=== PATIENT | female | born 1990 | race Caucasian/White ===

== ENCOUNTER → 2016-11-28 | Outpatient (CLI) | payer OTHER ==
[~2016-11-28] MED LIST: PRENTAB26 PO
[2016-11-28 11:58] LABS: URINE APPEARANCE CLEAR (CLEAR); URINE BILIRUBIN NEG (NEG); URINE COLOR YELLOW; URINE EPITHELIAL CELL AUTO >30 /lpf (0-5); URINE NITRITE NEG (NEG); URINE PH 7.5 (4.5-7.5); URINE SPECIFIC GRAVITY 1.012 (1.000-1.030); UROBILINOGEN NEG (NEG)
[2016-11-28 12:00] LABS: MANUAL MICROSCOPIC REQUIRED? NO; REVIEW REQ? NO
== END | disposition home or self-care (01) ==
LOC: C.LABSPEC 11:31
PROVIDERS: ATTEND Obstetrics & Gynecology
DX: Z34.00 Encounter for supervision of normal first pregnancy, unspecified trimester (principal)

== ENCOUNTER → 2016-12-06 | Outpatient (CLI) | payer OTHER | END | disposition home or self-care (01) | LOC: C.PAPS 15:07 | PROVIDERS: ATTEND Obstetrics & Gynecology | DX: Z34.00 Encounter for supervision of normal first pregnancy, unspecified trimester (principal) ==

== ENCOUNTER → 2016-12-06 | Outpatient (CLI) | payer OTHER ==
[2016-12-06 11:43] LABS: HEMATOCRIT 39.6 % (37-47); MEAN CELL VOLUME 90.4 fL (80-100); MEAN CORPUSCULAR HEMOGLOBIN 31.5 pg (25-34); MEAN CORPUSCULAR HGB CONC 34.8 g/dl (32-36); MEAN PLATELET VOLUME 11.2 fL (7.4-10.4); PLATELET COUNT 262 K/uL (130-400); RED BLOOD COUNT 4.38 M/uL (4.2-5.4); WHITE BLOOD COUNT 9.07 K/uL (4.8-10.8)
[2016-12-06 11:52] LABS: COMPLETE YES
== END | disposition home or self-care (01) ==
LOC: C.LAB1850 09:50
PROVIDERS: ATTEND Obstetrics & Gynecology
DX: Z34.00 Encounter for supervision of normal first pregnancy, unspecified trimester (principal)

== ENCOUNTER → 2016-12-06 | Outpatient (CLI) | payer OTHER ==
[2016-12-11 00:15] LABS: CHLAMYDIA TRACH RNA*** NOT DETECTED (NOT DETECTED); GC (NEIS GONORRHOEAE)RNA** NOT DETECTED (NOT DETECTED)
== END | disposition home or self-care (01) ==
LOC: C.LABSPEC 13:17
PROVIDERS: ATTEND Obstetrics & Gynecology
DX: Z34.00 Encounter for supervision of normal first pregnancy, unspecified trimester (principal)

== ENCOUNTER → 2017-01-16 | Outpatient (CLI) | payer OTHER ==
[2017-01-16 18:05] LABS: GTGD 50 Grams
== END | disposition home or self-care (01) ==
LOC: C.LAB1850 15:41
PROVIDERS: ATTEND Obstetrics & Gynecology
DX: Z34.00 Encounter for supervision of normal first pregnancy, unspecified trimester (principal)

== ENCOUNTER 2017-02-17 03:48 | Emergency (ER) | payer OTHER ==
[~2017-02-17] VITALS: Ht 170.2 cm; Wt 95.9 kg
[2017-02-17 03:55] VITALS: TEMP 36.4; Ht 170.2 cm; Wt 95.9 kg
[2017-02-17] MEDS ORDERED: PRENTAB26 PO (04:13)
[2017-02-17] MEDS ORDERED: SODIUM CHLORIDE 0.9% 1000ML 1,000 ML IV STA (04:21)
[2017-02-17] MEDS ORDERED: MoRPHine SULFATE 4 MG/ML 1 ML CARP\\VIAL IV STA (04:24)
[2017-02-17] MEDS ORDERED: ONDANSETRON INJ 2 MG/ML 2 ML VIAL IV STA (04:24)
--- NOTE | 2017-02-17 04:29 | EMERGENCY ROOM VISIT NOTE ---
History Report prepared by Bal: Jolynn Simmons Under the Supervision of: Dr. Noemi Posadas D.O. First contact with patient: 04:04 Chief Complaint: ABDOMINAL PAIN Stated Complaint: ABD PAIN,20 WEEKS PREG, Nursing Triage Summary: Pt reporting mid to right upper quadrant abdominal pain that awoke her from sleep at 0100. Pain rated 7/10. 3 episodes of vomiting. 20 weeks . History of Present Illness The patient is a 26 year old female who presents to the Emergency Room with complaints of persistent upper abdominal pain that began around 0100 this morning. She currently rates her discomfort as a 7/10 in severity. The patient states that the pain woke her up this morning, noting that she felt fine prior to going to bed last evening. She states she has never had pain like this in the past. The patient states that she is currently 20 weeks . She states that her pain wraps around to her back. The patient additionally notes 3 episodes of vomiting, but denies any nausea. She states that she has been lightheaded with movement. The patient denies any vaginal bleeding or discharge, urinary symptoms, or difficulty moving her bowels. She denies having any contractions. The patient states that she has a history of syncope with due to hypotension in the past. She denies any active medical problems. The patient denies any previous abdominal surgeries. Source of History: patient Onset: 0100 this morning Position: abdomen (upper) Symptom Intensity: 7/10 Timing: other (persistent) Associated Symptoms: + vomiting, No nausea, No urinary symptoms Note: Associated Symptoms: lightheaded with movement, pain wrapping around to her back Review of Systems See HPI for pertinent positives & negatives. A total of 10 systems reviewed and were otherwise negative. Past Medical & Surgical Medical Problems: (1) Syncope Family History No pertinent family history stated. Social History Smoking Status: Never Smoker Marital Status: Housing Status: lives with significant other Occupation Status: employed Current/Historical Medications Scheduled Multivit/Min/Iron/Fol Ac/Pren ( Vitamin), 1 TAB PO DAILY Allergies Coded Allergies: No Known Allergies (Unverified , 02/17/17) Physical Exam Vital Signs Date Time Temp Pulse Resp B/P Pulse Ox O2 Delivery O2 Flow Rate FiO2 02/17/17 06:28 71 16 105/59 100 Room Air 02/17/17 06:00 63 16 98/56 100 Room Air 02/17/17 05:31 57 02/17/17 05:28 58 18 100/53 99 Room Air 02/17/17 04:22 105/52 02/17/17 03:55 36.4 57 18 84/54 99 Room Air Physical Exam HEENT: Head - normocephalic and atraumatic Pupils are equal, round, and reactive to light. Extraocular eye muscles are intact, and sclera are anicteric. Nose - moist nasal mucosa without discharge. Mouth - moist buccal mucosa. Oropharynx is nonerythematous and there is no tonsillar exudate or edema noted. Neck: Supple; no JVD, nuchal rigidity, cervical lymphadenopathy. Heart: Regular rate and rhythm. There is a normal S1 and S2 with no murmurs, clicks, or gallops appreciated. Lungs: Clear to auscultation bilaterally with no wheezes, rales, or rhonchi. Abdomen: Gravid, diffusely tender in epigastrium and upper quadrants of the abdomen. Soft, nondistended, with good bowel sounds. There are no palpable pulsatile masses or hepatosplenomegaly. There is no guarding, rigidity, or rebound noted. Extremities: No evidence of cyanosis, clubbing, or edema. There are easily palpable peripheral pulses. Skin: Pale, warm and dry with good turgor and no rashes. Medical Decision & Procedures ER Provider Diagnostic Interpretation: US results as stated below per my review and radiologist interpretation: US RUQ: Distended GB with multiple small mobile gallstones. No evidence of GB wall thickening or pericholecystic fluid. No biliary dilation. Liver measures 18.1 cm long. Right kidney and visualized pancreas are unremarkable. No free fluid. Radiologist: Wei Florence MD Study ready at 0530 and initial results transmitted at 0557. US OB limited: Single live intrauterine gestation with approximate gestational age of 20 weeks and 6 days by measurements. heart rate 160 and beats per minute Breech presentation. Fundal placenta. Amniotic fluid is within normal limits. Radiologist: Wei Florence MD Study ready at 0530 and initial results transmitted at 0514. Laboratory Results 02/17/17 04:55 Red Blood Count 3.79, Mean Corpuscular Volume 91.0, Mean Corpuscular Hemoglobin 30.3, Mean Corpuscular Hemoglobin Concent 33.3, Mean Platelet Volume 10.8, Neutrophils (%) (Auto) 87.5, Lymphocytes (%) (Auto) 8.4, Monocytes (%) (Auto) 3.7, Eosinophils (%) (Auto) 0.1, Basophils (%) (Auto) 0.0, Neutrophils # (Auto) 12.88, Lymphocytes # (Auto) 1.24, Monocytes # (Auto) 0.55, Eosinophils # (Auto) 0.01, Basophils # (Auto) 0.00 02/17/17 04:55 Test 02/17/17 04:55 White Blood Count 14.72 K/uL (4.8-10.8) Red Blood Count 3.79 M/uL (4.2-5.4) Hemoglobin 11.5 g/dL (12.0-16.0) Hematocrit 34.5 % (37-47) Mean Corpuscular Volume 91.0 fL (80-100) Mean Corpuscular Hemoglobin 30.3 pg (25-34) Mean Corpuscular Hemoglobin Concent 33.3 g/dl (32-36) Platelet Count 205 K/uL (130-400) Mean Platelet Volume 10.8 fL (7.4-10.4) Neutrophils (%) (Auto) 87.5 % Lymphocytes (%) (Auto) 8.4 % Monocytes (%) (Auto) 3.7 % Eosinophils (%) (Auto) 0.1 % Basophils (%) (Auto) 0.0 % Neutrophils # (Auto) 12.88 K/uL (1.4-6.5) Lymphocytes # (Auto) 1.24 K/uL (1.2-3.4) Monocytes # (Auto) 0.55 K/uL (0.11-0.59) Eosinophils # (Auto) 0.01 K/uL (0-0.5) Basophils # (Auto) 0.00 K/uL (0-0.2) RDW Standard Deviation 44.2 fL (36.4-46.3) RDW Coefficient of Variation 13.3 % (11.5-14.5) Immature Granulocyte % (Auto) 0.3 % Immature Granulocyte # (Auto) 0.04 K/uL (0.00-0.02) Anion Gap 9.0 mmol/L (3-11) Est Creatinine Clear Calc Drug Dose 157.0 ml/min Estimated GFR () 141.7 Estimated GFR (Non- 122.3 BUN/Creatinine Ratio 12.6 (10-20) Calcium Level 8.2 mg/dl (8.5-10.1) Total Bilirubin 0.2 mg/dl (0.2-1) Direct Bilirubin < 0.1 mg/dl (0-0.2) Aspartate Amino Transf (AST/SGOT) 12 U/L (15-37) Alanine Aminotransferase (ALT/SGPT) 27 U/L (12-78) Alkaline Phosphatase 98 U/L (45-117) Total Protein 6.2 gm/dl (6.4-8.2) Albumin 2.6 gm/dl (3.4-5.0) Lipase 97 U/L (73-393) Laboratory results per my review. Medications Administered Medications (Trade) Dose Ordered Sig/Deloris Route Start Time Stop Time Status Last Admin Dose Admin Sodium Chloride (Nss 1000ml) 1,000 ml @ 999 mls/hr Q1H1M STAT IV 02/17/17 04:21 02/17/17 05:21 DC 02/17/17 04:48 999 MLS/HR Morphine Sulfate (MoRPHine SULFATE INJ) 4 mg NOW STAT IV 02/17/17 04:24 02/17/17 04:25 DC 02/17/17 04:41 4 MG Ondansetron HCl (Zofran Inj) 4 mg NOW STAT IV 02/17/17 04:24 02/17/17 04:25 DC 02/17/17 04:40 4 MG Procedure The patient was treated with Chloride 1000 ml @ 999 mls/hr IV, Zofran Inj 4 mg IV, Morphine Sulfate 4 mg IV. ED Course 0418: Past medical records reviewed. The patient was evaluated in room A2. A complete history and physical exam was performed. An IV lock was initiated and labs were drawn as above. 0421: Ordered Sodium Chloride 1000 ml @ 999 mls/hr IV. 0424: Ordered Zofran Inj 4 mg IV, Morphine Sulfate 4 mg IV. The patient went for an ultrasound of the epigastrium as well as the baby. 0601: I reevaluated the patient and she is feeling much better. I discussed the exam findings with her and i discussed the treatment plan. She verbalized complete understanding and agreement. She is ready to go home. Medical Decision The patient is a 26 year old female who presents to the ED with abdominal pain. Differential diagnosis includes cholecystitis, HELLP syndrome, pancreatitis, gastritis, placental abruption, small bowel obstruction. Lab interpretation: normal lipase, normal LFTs, glucose 129, normal renal function, hemoglobin 11.5, white blood cell count 14.7. This is a 26-year-old female patient in her second trimester who awoke tonight with severe epigastric abdominal pain. Laboratory studies were fairly unremarkable. Ultrasound of the right upper quadrant of the abdomen was essentially negative. Ultrasound of the was normal. The patient was feeling much better after receiving the IV pain medications. I've asked patient to follow up closely with OB. She is to take a bland diet and plenty of clear liquids. She is to return to the emergency department if she has any worsening symptoms. Impression Primary Impression: Epigastric abdominal pain Additional Impression: Second trimester Scribe Attestation The scribe's documentation has been prepared under my direction and personally reviewed by me in its entirety. I confirm that the note above accurately reflects all work, treatment, procedures, and medical decision making performed by me. Departure Information Dispostion Home / Self-Care Referrals No Doctor, Assigned (PCP) Forms HOME CARE DOCUMENTATION FORM, IMPORTANT VISIT INFORMATION Patient Instructions My [facility] Additional Instructions PLease follow up with OB tomorrow if pain persists. Rest. Take plenty of clear liquids Problem Qualifiers
[2017-02-17 05:05] LABS: COMPLETE YES; EOS % 0.1 %; HEMATOCRIT 34.5 % (37-47); IG% 0.3 %; LYMPH % 8.4 %; LYMPH ABS # 1.24 K/uL (1.2-3.4); MEAN CORPUSCULAR HEMOGLOBIN 30.3 pg (25-34); MEAN CORPUSCULAR HGB CONC 33.3 g/dl (32-36); MEAN PLATELET VOLUME 10.8 fL (7.4-10.4); MONO % 3.7 %; NEUT % 87.5 %; PLATELET COUNT 205 K/uL (130-400); RED BLOOD COUNT 3.79 M/uL (4.2-5.4); WHITE BLOOD COUNT 14.72 K/uL (4.8-10.8)
[2017-02-17 05:24] LABS: ALT/SGPT 27 U/L (12-78); AST/SGOT 12 U/L (15-37); BLOOD UREA NITROGEN 8 mg/dl (7-18); BUN/CREATININE RATIO 12.6 (10-20); CALCIUM 8.2 mg/dl (8.5-10.1); CARBON DIOXIDE 26 mmol/L (21-32); CHLORIDE 107 mmol/L (98-107); CREATININE 0.64 mg/dl (0.60-1.20); GLUCOSE 129 mg/dl (70-99); POTASSIUM 3.9 mmol/L (3.5-5.1); SODIUM 142 mmol/L (136-145)
[2017-02-17 05:26] LABS: ALKALINE PHOSPHATASE 98 U/L (45-117)
[2017-02-17 06:28] VITALS: BP 105/59; PULSE 71; O2SAT 100
--- NOTE | 2017-02-17 07:12 | DIAGNOSTIC IMAGING REPORT ---
BILIARY ULTRASOUND CLINICAL HISTORY: Right upper quadrant abdominal pain COMPARISON STUDY: No previous studies for comparison. FINDINGS: The pancreas appears normal as visualized. The distal body and tail are poorly seen. No hepatic masses are visualized. There is no ductal dilatation. There are multiple gravel-like gallstones. There is no gallbladder wall thickening. The common bile duct measures 4 mm. There is no right-sided hydronephrosis. IMPRESSION: Cholelithiasis. Mild gallbladder distention. No evidence of ductal dilatation. Electronically signed by: Carlos Kauffman M.D. 02/17/2017 7:11 AM Dictated Date/Time: 02/17/2017 7:09 AM
--- NOTE | 2017-02-17 07:14 | DIAGNOSTIC IMAGING REPORT ---
LIMITED ULTRASOUND CLINICAL HISTORY: Severe abdominal pain COMPARISON STUDY: No previous studies for comparison. FINDINGS: A single live fetus in breech presentation was identified. The placenta was fundal. No placental abnormalities were identified. The heart rate was 159. The amniotic fluid 13.6 cm. The femur measured 34 mm. The BPD measured 48 mm. These measurements correspond to an estimated postmenstrual age of 20 weeks and 5 days. A anatomic study was not performed. IMPRESSION: 1. Single live fetus in breech presentation 2. The estimated postmenstrual age is 20 weeks and 5 days 3. No placental abnormalities identified. Electronically signed by: Carlos Kauffman M.D. 02/17/2017 7:13 AM Dictated Date/Time: 02/17/2017 7:11 AM
== END 2017-02-17 06:28 | disposition home or self-care (01) ==
LOC: C.EDB 03:49 → C.EDA 06:28
DX: O26.92 Pregnancy related conditions, unspecified, second trimester (principal); R10.13 Epigastric pain

== ENCOUNTER → 2017-04-10 | Outpatient (CLI) | payer OTHER ==
[2017-04-10 15:39] LABS: HEMATOCRIT 36.1 % (37-47)
[2017-04-10 17:20] LABS: GTGD 50 Grams
== END | disposition home or self-care (01) ==
LOC: C.LAB1850 13:42
PROVIDERS: ATTEND Obstetrics & Gynecology
DX: Z34.02 Encounter for supervision of normal first pregnancy, second trimester (principal)

== ENCOUNTER → 2017-04-10 | Outpatient (CLI) | payer OTHER ==
[2017-04-10 16:36] LABS: URINE APPEARANCE CLEAR (CLEAR); URINE BILIRUBIN NEG (NEG); URINE COLOR YELLOW; URINE EPITHELIAL CELL AUTO >30 /lpf (0-5); URINE NITRITE NEG (NEG); URINE PH 6.5 (4.5-7.5); URINE SPECIFIC GRAVITY 1.026 (1.000-1.030); UROBILINOGEN NEG (NEG)
[2017-04-10 16:47] LABS: MANUAL MICROSCOPIC REQUIRED? NO; REVIEW REQ? NO
== END | disposition home or self-care (01) ==
LOC: C.LABSPEC 15:52
PROVIDERS: ATTEND Obstetrics & Gynecology
DX: Z34.02 Encounter for supervision of normal first pregnancy, second trimester (principal)

== ENCOUNTER → 2017-04-23 | Outpatient (CLI) | payer OTHER | END | disposition home or self-care (01) | LOC: C.LAB1850 08:55 | PROVIDERS: ATTEND Obstetrics & Gynecology | DX: Z34.02 Encounter for supervision of normal first pregnancy, second trimester (principal) ==

== ENCOUNTER → 2017-06-07 | Outpatient (CLI) | payer OTHER | END | disposition home or self-care (01) | LOC: C.LABSPEC 13:15 | PROVIDERS: ATTEND Obstetrics & Gynecology | DX: Z34.02 Encounter for supervision of normal first pregnancy, second trimester (principal) ==

== ENCOUNTER 2017-07-04 05:45 | Inpatient (IN) | payer OTHER ==
[~2017-07-04] VITALS: Ht 167.6 cm; Wt 109.1 kg
[2017-07-04] MEDS ORDERED: LACTATED RINGER'S 1000ML 1,000 ML IV SCH (06:18)
[2017-07-04] MEDS ORDERED: LACTATED RINGER'S 1000ML 1,000 ML IV PRN (06:18)
[2017-07-04 06:40] LABS: HEMATOCRIT 37.3 % (37-47); MEAN CELL VOLUME 89.9 fL (80-100); MEAN CORPUSCULAR HEMOGLOBIN 29.6 pg (25-34); MEAN PLATELET VOLUME 11.7 fL (7.4-10.4); PLATELET COUNT 203 K/uL (130-400); RED BLOOD COUNT 4.15 M/uL (4.2-5.4); WHITE BLOOD COUNT 18.62 K/uL (4.8-10.8)
[2017-07-04] MEDS ORDERED: FENTANYL CITRATE INJ 50 MCG/1 ML 2 ML VIAL ONE (07:03)
[2017-07-04] MEDS ORDERED: FENTANYL 2MCG/ML ROPIV 1.25MG/ML 100ML BAG EPI ONE (07:03)
[2017-07-04] MEDS ORDERED: EpHEDrine SULFATE INJ 50 MG/ML AMP ONE (07:03)
[2017-07-04] MEDS ORDERED: BUPIVACAINE 0.25% 30 ML VIAL ONE (07:03)
[2017-07-04 07:14] VITALS: Ht 167.6 cm; Wt 109.1 kg
[2017-07-04] MEDS ORDERED: INFLUENZA ADMINISTRATION CHARGE ONE (08:30)
[2017-07-04] MEDS ORDERED: INFLUENZA VIRUS QUAD VACCINE 0.5 ML SYR IM. ONE (08:30)
[2017-07-04] MEDS ORDERED: NALOXONE HCL INJ 1 MG in SODIUM CHLORIDE 0.9% 1000ML 1,000 ML IV PRN (09:23)
[2017-07-04] MEDS ORDERED: LACTATED RINGER'S 1000ML 500 ML IV PRN (09:23)
[2017-07-04] MEDS ORDERED: DiphenhydrAMINE HCL 50 MG/ML VIAL IV PRN (09:30)
[2017-07-04] MEDS ORDERED: FENTANYL 2MCG/ML ROPIV 1.25MG/ML 100ML BAG EPI PRN ×2 (09:30→10:00)
[2017-07-04] MEDS ORDERED: NALBUPHINE HCL INJ 10 MG/ML AMP IV PRN (09:30)
[2017-07-04] MEDS ORDERED: ONDANSETRON INJ 2 MG/ML 2 ML VIAL IV PRN (09:30)
[2017-07-04] MEDS ORDERED: EpHEDrine SULFATE INJ 50 MG/ML AMP IV PRN (09:30)
[2017-07-04] MEDS ORDERED: NALOXONE HCL INJ 0.4 MG/1 ML VIAL/CARP IV PRN (09:30)
[2017-07-04] MEDS ORDERED: OXYTOCIN 30 UNITS/500ML NSS IV ONE (11:40)
[2017-07-04] MEDS ORDERED: BENZOCAINE 20% AER SPR 82.5 GM CAN EXT PRN (12:45)
[2017-07-04] MEDS ORDERED: LANOLIN OINT EXT PRN ×2 (12:45)
[2017-07-04] MEDS ORDERED: SUPERCREAM 0.870 % 15GM JAR EXT PRN (12:45)
[2017-07-04] MEDS ORDERED: ACETAMINOPHEN/CODEINE 300/30MG TAB PO PRN ×2 (12:45)
[2017-07-04] MEDS ORDERED: OXYTOCIN 30 UNITS/500ML NSS IV PRN (12:45)
[2017-07-04] MEDS ORDERED: ACETAMINOPHEN 325 MG TAB PO PRN (12:45)
--- NOTE | 2017-07-04 12:55 | Anesthesia Procedure Note ---
Anesthesia Epidural Removal Nt Date & Time Jul 04, 2017 at 12:55 Vital Signs Pain Intensity: 6.0 Notes Mental Status: alert / awake / arousable, participated in evaluation Nausea / Vomiting: adequately controlled Pain: adequately controlled Airway Patency, RR, SpO2: stable & adequate BP & HR: stable & adequate Hydration State: stable & adequate Neuraxial Anesthesia: was administered, sensory block is resolving Anesthetic Complications: no major complications apparent, pt satisfied with anesthetic care Epidural: removed without complications, with tip intact
[2017-07-04] MEDS ORDERED: CEFAZOLIN SOD 2000 MG in DEXTROSE 5% 50ML IV SCH (13:00)
--- NOTE | 2017-07-04 13:54 | DELIVERY SUMMARY ---
DATE OF OPERATION: 07/04/2017 DATE OF DELIVERY: 07/04/2017 The patient is a 27-year-old G1, P0 white female who presented at 40 and 3/7 weeks with regular contractions. She was actually scheduled for induction today as well. She ruptured membranes spontaneously for meconium. The placenta is velamentous insertion plus a 2 vessel cord. She received epidural analgesia and progressed to full dilation. She pushed effectively over intact perineum for delivery of a viable female infant. Mouth and nasopharynx were suctioned on the perineum. The rest of the delivered easily and was placed on the mother's abdomen initially for stimulation and drying. The cord was clamped and cut and then the was handed off to Dr. Guevara who was in attendance for further evaluation. There was spontaneous crying and the was moving all 4 limbs. The placenta was beginning to deliver spontaneously but then there was a significant amount of bleeding and was noted that the cord was beginning to avulse from the placenta. Manual extraction of the placenta was then performed with some retained membranes which were removed with ring forceps. Further exploration revealed that the uterine cavity was clean. Dilute Pitocin was used for control of bleeding. Her bladder was emptied for approximately 75 mL of clear urine. A second degree perineal laceration was repaired with 3-0 chromic in the usual fashion. Mother and are dong well after delivery. I attest to the content of the Intraoperative Record and any orders documented therein. Any exceptions are noted below. MTDD
[2017-07-04] MEDS: IBUPROFEN 600 MG TAB PO PRN ×2 (14:59→19:17)
[2017-07-04 15:35] VITALS: BP 135/65; PULSE 86; TEMP 36.9
[2017-07-04] MEDS: DOCUSATE SODIUM 100 MG CAP PO SCH (19:17)
[2017-07-04 19:20] VITALS: BP 113/73; PULSE 92; TEMP 36.4; O2SAT 98
[2017-07-04 23:40] VITALS: BP 121/79; PULSE 84; TEMP 36.4; O2SAT 97
[2017-07-05 05:00] VITALS: BP 101/67; PULSE 85; TEMP 36.4; O2SAT 97
[2017-07-05] MEDS ORDERED: CEFAZOLIN IV 2,000 MG/60 ML D5W IV ONE (06:00)
[2017-07-05] MEDS: DOCUSATE SODIUM 100 MG CAP PO SCH ×2 (07:26→20:14)
[2017-07-05] MEDS: PRENATAL VITAMIN TAB PO SCH (07:26)
[2017-07-05] MEDS: IBUPROFEN 600 MG TAB PO PRN ×3 (07:27→23:31)
[2017-07-05 07:40] VITALS: BP 104/69; PULSE 86; TEMP 36.4
--- NOTE | 2017-07-05 08:50 | Progress Note ---
Subjective Jul 05, 2017. Subjective conversation w/ patient, physical exam, chart review, lab review Ambulation: ambulating normally Voiding: no voiding problems Passing Gas: Yes Diet Tolerance: Regular Diet Lochia: Moderate Feeding Type: Breast Feeding Pain: controlled Review of Systems Respiratory: No shortness of breath Cardiac: No chest pain Abdomen: No nausea, No vomiting Female : No dysuria Objective Vital Signs Date Time Temp Pulse Resp B/P (MAP) Pulse Ox O2 Delivery O2 Flow Rate FiO2 07/05/17 05:00 36.4 85 16 101/67 (78) 97 Room Air 07/04/17 23:40 Room Air 07/04/17 23:40 36.4 84 16 121/79 (93) 97 Room Air 07/04/17 19:20 Room Air 07/04/17 19:20 36.4 92 16 113/73 (86) 98 Room Air 07/04/17 15:35 Room Air 07/04/17 15:35 36.9 86 18 135/65 (88) Room Air Physical Exam General Appearance: WELL-APPEARING, WD/WN, NO APPARENT DISTRESS Respiratory/Chest: lungs clear, normal breath sounds, no respiratory distress Cardiovascular: regular rate, rhythm, no gallop Abdomen: normal bowel sounds, soft Fundus: Firm, Non-Tender, Relation to Umbilicus (1 below U) Extremities: no calf tenderness Assessment and Plan Post- Day#: 1 Continue Routine Care: Resident Physician Supervision Note: I was present with Dr. Loera during the history and exam. I discussed the case with the resident and agree with the findings and plan as documented in the note. Any exceptions or clarifications are listed here: none Documented By: Anu Dacosta - Vital Signs reviewed and WNL except for high blood pressure 155/80. Pt denies headache or palpitations. - Hgb 12.3 on admission. Stable. - Blood Type: B+, GBS - , Rubella Immune. - Pt is doing well clinically. - Monitor and Control pain with Motrin PRN, resume regular diet as tolerated, Monitor Lochia. - Encourage breast feeding. - Continue routine post care. ADEOLA LOERA PGY1 FM RESIDENT Resident Tracking Resident Involvement: Resident Care Provided Care Provided: OB Delivery
[2017-07-05 12:40] VITALS: BP 126/82; PULSE 90; TEMP 36.7
--- NOTE | 2017-07-05 15:39 | Discharge Instructions ---
Discharge Instructions Date of Service Jul 05, 2017. Admission Reason for Admission: Normal Labor Discharge Discharge Diagnosis / Problem: DELIVERY VAGINAL Discharge Goals Goal(s): Routine recovery after delivery Medications Continue Dispensed Medications: supercream, dermaplast, tucks, lansinoh Activity Recommendations Activity Limitations: per Instructions/Follow-up section . Instructions / Follow-Up Instructions / Follow-Up ACTIVITY RECOMMENDATIONS: * Gradual return to full activity over the next 2-3 weeks. * No lifting - nothing heavier than baby over the next 2-3 weeks. * Do not engage in vigorous exercise, sexual activity or sports until cleared by your physician. * Do not drive or operate any motorized equipment until cleared by your physician. * You may shower/bathe daily. MEDICATIONS: For discomfort or pain, you may use Acetaminophen (Tylenol), Ibuprofen (Advil), or Naproxen (Aleve) following the package directions. For constipation you may use Colace following the package directions. BREAST CARE: If you are not breast feeding: * Wear a supportive bra 24 hours a day for one to two weeks. * Avoid stimulating your breasts and nipples as much as possible during the first few weeks after delivery. * When taking a shower, have the warm water hit your back, not breasts. * When your breasts feel full, apply ice packs. Usually three to four times a day helps ease the discomfort. * Take a mild pain medication (Tylenol / Motrin) when you are uncomfortable. If breast feeding: * Use breast milk to lubricate nipples. Lansinoh cream may be used for sore nipples. You do not need to remove cream prior to breast feeding. If using a different brand of cream, check the label for directions regarding removal of cream prior to nursing. * Wear a supportive bra. * If having problems with breasts or breast feeding, call a corporate travel consultant or your health care provider. EPISIOTOMY CARE: After delivery, if you have an episiotomy (stitches), the following steps will ease discomfort and aid healing. * For the first 24 hours after delivery, place ice packs next to your episiotomy to help reduce swelling. * After the first 24 hour-period, sitz baths, either portable or in the tub, are suggested. A shower with a shower arm sprayed over the episiotomy may be comforting. * [place] care should be done after each voiding and bowel movement. Squirt warm water from a plastic bottle over the perineum (region of the body between the anus and urinary opening) and pat dry. * Use Dermoplast to ease discomfort. Shake container. [place] directly over the episiotomy. Place a Tucks on a clean sanitary pad next to your episiotomy. SPECIAL CARE INSTRUCTIONS: When you are discharged from the hospital, it is important for you to follow the instructions listed below: * During the first week at home, you should be able to care for yourself and your baby. In addition, the usual light household activities are encouraged. * Limit your activities to the way you feel. Do not try to clean the house or move furniture. Be sensible. * If you actively engage in sports and have done so up until the time of your delivery, you may resume these activities as soon as you feel able. This may take up to one month or even longer. Use good judgment. * Continue to take your vitamins for at least six weeks after the of your baby. * Your diet need not be limited unless you were on a special diet before your delivery. Breast-feeding mothers need around 2500 calories per day and at least 64-80 ounces of fluid per day (8 to 10 glasses). * You should eat foods from the four major food groups. Crash diets or fad diets are to be avoided. Eating lean meats, fresh fruits and vegetables, low-fat dairy products, high fiber foods and a regular exercise program, will help you get back to your pre- weight without putting your health at risk. * Constipation is sometimes a problem after delivery. Take a mild laxative as needed. If breast feeding, Milk of Magnesia is acceptable to use. You may use a suppository or Fleets enema if no episiotomy. * A daily shower or tub bath is suggested. Be sure to thoroughly and gently dry the perineum. * A bloody vaginal discharge will usually continue until around four weeks post . A small amount of bleeding may continue for as long as six weeks. Vaginal discharge changes from the bright red bleeding after delivery to pink then brownish and finally yellowish-pink before becoming white and disappearing. * Bleeding may increase with activity. Your first period may come in 4-8 weeks. If you are breast feeding, your period may be delayed even longer. * [place] (sex) can begin whenever both you and your partner feel comfortable and do not have any form of genital infection. It is recommended that you wait at least six weeks for internal and external healing to occur. If you have questions, please talk to your health care practitioner. A condom should be used to prevent infection and . * Foreplay, gentle intercourse and lubrication is very important the first several times to prevent pain. A water-based lubricant such as K-Y jelly or Astroglide may be used. * If you have RH negative blood and your baby is RH positive, you will receive RHOGAM by injection prior to discharge. The nurse will give you a card to keep with you that has the date and place that you received RHOGAM after delivery. * During your care, you had a Rubella screen done to check for the presence of rubella antibodies in your blood. If your test was negative, you will receive a Rubella vaccine prior to discharge. This vaccine may cause a fever, soreness at the injection site and flu-like symptoms. If these symptoms persist, notify your health care practitioner. is not advised for one month after a Rubella vaccine. * Verbalizes understanding of car seat law as reviewed with patient nursing. * Car Seat hand-out given and reviewed with patient by nursing. * Shaken baby information reviewed with patient by nursing. Call you doctor if: * Heavy bleeding (saturating several pads an hour) or passing clots the size of your fist. * A fever >101 degrees F (38.3 degrees C) on two occasions four hours apart and /or chills. * Unusual pain in the pelvic or vaginal areas. * "Baby Blues" lasting longer than two weeks. If you have any questions or concerns, call your health care practitioner at . FOLLOW UP VISIT: * Please call the office at to schedule a 6 week examination. It is important you keep this appointment. It is important for you to make arrangements for either yearly or twice yearly check-ups thereafter. Current Hospital Diet Patient's current hospital diet: Regular OB Diet Discharge Diet Recommended Diet: Regular Diet Pending Studies Studies pending at discharge: no Medical Emergencies . Who to Call and When: Medical Emergencies: If at any time you feel your situation is an emergency, please call 911 immediately. . Non-Emergent Contact Non-Emergency issues call your: Primary Care Provider . . "Provider Documentation" section prepared by Eden Loera. . VTE Core Measure Inpt VTE Proph given/why not?: Treatment not indicated
[2017-07-05 16:05] VITALS: BP 109/72; PULSE 86; TEMP 36.8
[2017-07-05] MEDS ORDERED: BISACODYL 5 MG TABEC PO SCH (20:00)
[2017-07-06 00:15] VITALS: BP 119/78; PULSE 92; TEMP 36.8
--- NOTE | 2017-07-06 08:17 | Progress Note ---
Subjective Jul 06, 2017. Subjective conversation w/ patient, physical exam, chart review, lab review Ambulation: ambulating normally Voiding: no voiding problems Passing Gas: Yes Diet Tolerance: Regular Diet Lochia: Moderate Feeding Type: Breast Feeding Pain: controlled Review of Systems Respiratory: No shortness of breath Cardiac: No chest pain Abdomen: No nausea, No vomiting Female : No dysuria Objective Vital Signs Date Time Temp Pulse Resp B/P (MAP) Pulse Ox O2 Delivery O2 Flow Rate FiO2 07/06/17 00:15 36.8 92 18 119/78 (92) Room Air 07/06/17 00:15 Room Air 07/05/17 16:05 36.8 86 20 109/72 (84) Room Air 07/05/17 16:05 Room Air 07/05/17 12:40 36.7 90 16 126/82 (97) Room Air Physical Exam General Appearance: WELL-APPEARING, WD/WN, NO APPARENT DISTRESS Respiratory/Chest: lungs clear, normal breath sounds, no respiratory distress Cardiovascular: regular rate, rhythm, no gallop Abdomen: normal bowel sounds, soft Fundus: Firm, Non-Tender, Relation to Umbilicus (1 below U) Extremities: no calf tenderness Laboratory Results Last 24 Hours Test 07/05/17 09:18 Hemoglobin 10.6 g/dL Hematocrit 32.0 % Assessment and Plan Problem List Medical Problems: (1) Epigastric abdominal pain Status: Acute (2) Second trimester Status: Acute Post- Day#: 2 Continue Routine Care: - Vital Signs reviewed and WNL. - Blood Type: B+, GBS - , Rubella Immune. - Pt is doing well clinically. - Monitor and Control pain with Motrin PRN, resume regular diet as tolerated, Monitor Lochia. - Encourage breast feeding. - Pt counselled on discharge instructions. ADEOLA LOERA PGY1 FM RESIDENT Resident Physician Supervision Note: I was present with Dr. Loera during the history and exam. I discussed the case with the resident and agree with the findings and plan as documented in the note. Any exceptions or clarifications are listed here: PPD#2 doing well. Discharge today. Documented By: Delfina Alvarado Resident Tracking Resident Involvement: Resident Care Provided Care Provided: OB Delivery
[2017-07-06 08:33] VITALS: BP 108/71; PULSE 92; TEMP 36.6; O2SAT 97
[2017-07-06] MEDS: DOCUSATE SODIUM 100 MG CAP PO SCH (08:35)
[2017-07-06] MEDS: PRENATAL VITAMIN TAB PO SCH (08:35)
[2017-07-06 10:55] VITALS: BP_DIAS 71; PULSE 92; TEMP 36.6
== END 2017-07-06 10:55 | disposition home or self-care (01) | DRG 774 ==
LOC: C.OPB 05:45 → EDSTATUS 05:51 → C.LD 05:52 → C.OPB 06:21 → C.LD 11:14 → C.OBG 15:20
PROVIDERS: ADMIT Obstetrics & Gynecology; ATTEND Obstetrics & Gynecology
PROC: 10E0XZZ Delivery of Products of Conception, External Approach (ICD-10-PCS; principal; 2017-07-04)
PROC: 0KQM0ZZ Repair Perineum Muscle, Open Approach (ICD-10-PCS; principal; 2017-07-04)
DX: O48.0 Post-term pregnancy (principal); O67.8 Other intrapartum hemorrhage; O77.0 Labor and delivery complicated by meconium in amniotic fluid; O70.1 Second degree perineal laceration during delivery; O42.02 Full-term premature rupture of membranes, onset of labor within 24 hours of rupture; O69.89X0 Labor and delivery complicated by other cord complications, not applicable or unspecified; O43.893 Other placental disorders, third trimester; O43.123 Velamentous insertion of umbilical cord, third trimester; Z23 Encounter for immunization; Z37.0 Single live birth; Z3A.40 40 weeks gestation of pregnancy